=== PATIENT | female | born 1940 | race Caucasian/White ===

== ENCOUNTER 2020-04-12 12:57 | Emergency (ER) | payer MEDICARE, MEDICAID ==
[~2020-04-12 12:57] MED LIST: Sodium Chloride Irrig Solution 250 ML BOT ONE
[2020-04-12 14:15] LABS: Bilirubin Negative (Negative); Blood, Urine Negative (Negative); Clarity Clear (Clear); Glucose, Urine (Dipstick) Negative (Negative); Leukocyte Negative (Negative); Nitrite Negative (Negative); Protein, Urine (Dipstick) 100 mg/dL (Neg-Trace); Urobilinogen 0.2 mg/dL (Less than 2)
[2020-04-12 14:17] LABS: Prothrombin Time 12.9 sec (12.0-14.7)
[2020-04-12 14:24] LABS: Bacteria/HPF Rare-Few HPF (None Seen); RBC/HPF 0-3 HPF (0-3); Squamous Epithelial 0-3 HPF (0-3); WBC/HPF 0-3 HPF (0-3)
[2020-04-12 14:28] LABS: ALT (SGPT) 13 U/L (8-55); AST (SGOT) 11 U/L (5-34); Alkaline Phosphatase 90 U/L (40-110); Anion Gap 18 mmol/L (10-20); BUN (Urea Nitrogen) 45 mg/dL (9.8-20.1); Band 2 % (5-11); Bilirubin, Total 0.3 mg/dL (0.2-1.2); Calc. Creatinine Clearance 0 mL/min (70-130); Calcium 9.1 mg/dL (7.8-10.44); Carbon Dioxide 20 mmol/L (23-31); Chloride 108 mmol/L (98-107); Eosinophils 6 % (0-10); Estimated GFR-MDRD 24; Globulin 4.2 g/dL (2.4-3.5); Glucose 158 mg/dL (83-110); Hemoglobin 12.5 g/dL (12.0-16.0); Lymphocytes 8 % (21-51); MDiff Complete? YES; Macrocytosis SLIGHT = 6-15 cells (100X) (0-5/hpf); Mean Corpuscular HGB CONC 30.9 g/dL (32.0-36.0); Mean Corpuscular Hemoglobin 28.4 pg (27.0-31.0); Mean Corpuscular Volume 91.7 fL (78.0-98.0); Mean Platelet Volume 7.2 fL (7.4-10.4); Monocytes 4 % (0-10); Neutrophil 80 % (42-75); Platelet Count 268 thou/uL (130-400); Platelet Morphology Comment Appears Adequate; Potassium 4.5 mmol/L (3.5-5.1); Protein, Total 8.2 g/dL (6.0-8.3); RBC Distribution Width 12.9 % (11.5-14.5); Red Blood Cell (RBC) Count 4.39 mill/uL (4.20-5.40); Sodium 141 mmol/L (136-145); White Blood Cell (WBC) Count 20.1 thou/uL (4.8-10.8)
--- NOTE | 2020-04-12 14:34 | RAD ---
Exam:3 views right hand HISTORY: Fall. Pain. COMPARISON: None FINDINGS: No fracture, cortical irregularity or periosteal reaction. Mild degenerative changes are no lambert. IMPRESSION: No posttraumatic change.
--- NOTE | 2020-04-12 14:48 | CT ---
Exam: Head CT without contrast HISTORY: Trauma. Patient fell earlier. COMPARISON: none FINDINGS: Hemorrhage: No intraparenchymal hemorrhage or extra-axial hematoma. Brain parenchyma: Cortical nixon-white matter differentiation is preserved. No mass effect or midline shift. Basilar cisterns are patent. Ventricular system: Ventricles and sulci are patent and symmetric. Calvarium: Intact Scalp: Hematoma and subcutaneous emphysema involving the right parietal scalp, compatible with posttr aumatic change. 3 mm hyperdensity along the dermis may represent a small foreign body. Correlate clinically. Sinuses and mastoid air cells: Adequate aeration. IMPRESSION: 1. No intracranial post traumatic sequelae 2. Injury to the right parietal scalp as detailed above.
--- NOTE | 2020-04-12 16:15 | RAD ---
PORTABLE CHEST ONE VIEW: 04/12/20 at 2:18 p.m. HISTORY: Fall, chest pain. FINDINGS/IMPRESSION: The heart size is normal. The lungs are expanded without focal areas of consolidation, pneumothoraces or pleural effusions. There is a calcified granuloma in the right lower lobe. POS: MZA
--- NOTE | 2020-04-12 16:26 | RAD ---
THREE VIEWS LEFT SHOULDER: Comparison: 02-18-09 History: Fall with left shoulder pain. FINDINGS: Three views of the left shoulder shows acute angles along the neck of the humerus. This could represe nt nondisplaced fractures of the cortices of the humerus. This was seen on a prior radiograph. No sig nificant degenerative change is seen in the glenohumeral joint. IMPRESSION: Possible nondisplaced humeral neck fracture. POS: EAA
--- NOTE | 2020-04-12 16:32 | RAD ---
SINGLE VIEW OF THE PELVIS: History: Fall with pelvic pain. FINDINGS: Single view of the pelvis shows no evidence of acute fracture or dislocation. Degenerative changes ar e seen in the lumbar spine and sacroiliac joints. The hips are unremarkable. IMPRESSION: No evidence of acute osseous abnormality. POS: EAA
[2020-04-12] MEDS ORDERED: Lidocaine 1% w/Epinephrine 1:100K 20 ML VIAL ONE (16:48)
[2020-04-12] MEDS ORDERED: Adacel (T-DAP) 0.5 ML SYRINGE ONE (17:21)
--- NOTE | 2020-04-12 19:15 | CT ---
CT OF THE CERVICAL SPINE WITHOUT CONTRAST: 04/12/20 COMPARISON: None. HISTORY: Fall with neck pain. TECHNIQUE: Multiple contiguous axial images were obtained in a CT of the cervical spine without contrast. Sagitt al and coronal reformats were performed. The vertebral bodies and intervertebral discs demonstrate normal height and alignment without fractur e or subluxation. Minimal degenerative changes are seen. No prevertebral soft tissue swelling is seen . The posterior facets are well aligned. Normal alignment of the skull base with the cervical spine is seen. IMPRESSION: Mild degenerative of the cervical spine without acute osseous abnormality. POS: EAA
--- NOTE | 2020-04-12 19:58 | CT ---
CT OF THE LEFT SHOULDER WITHOUT CONTRAST: 04/12/20 COMPARISON: Shoulder radiographs, 04/12/20. HISTORY: Possible humeral neck fracture. TECHNIQUE: Multiple contiguous axial images were obtained in a CT of the left shoulder without contrast. Sagitta l and coronal reformats were performed. FINDINGS: Osteopenia is present. There is a subtle lucency extending through the cortex of the humeral neck. Th is is more prominent posteriorly and is difficult to definitely follow to the more anterior aspect of the humerus. It is difficult to determine whether there is a complete fracture through the humerus o r only of the posterior cortex of the humerus at the region of the humeral neck where it joins the hu meral head. A small osteophyte is seen extending off the inferior aspect of the humeral head. Mild lagunas rrounding soft tissue swelling is seen. IMPRESSION: Left proximal humerus fracture. This is minimally displaced. There is definitely a fracture along the posterior cortex and it is difficult to determine if a complete fracture through the humerus is pre sent. An MRI may be necessary for confirmation if this would pipe changer of the patient. POS: SAUL
== END 2020-04-12 18:03 | disposition home or self-care (01) ==
LOC: MADERS 12:57
DX: S42.202A Unspecified fracture of upper end of left humerus, initial encounter for closed fracture (principal); S01.01XA Laceration without foreign body of scalp, initial encounter; S61.411A Laceration without foreign body of right hand, initial encounter; E11.9 Type 2 diabetes mellitus without complications; E78.5 Hyperlipidemia, unspecified; E78.00 Pure hypercholesterolemia, unspecified; I10 Essential (primary) hypertension; Z79.4 Long term (current) use of insulin; Z79.899 Other long term (current) drug therapy; W19.XXXA Unspecified fall, initial encounter
CPT/HCPCS: 12002; 36415; 70450; 71045; 72125; 72170; 80053; 81003; 81015; 85025; 85610; 90471; 90715; 93005; G0390

== ENCOUNTER 2023-10-21 15:21 | Emergency (ER) | payer MEDICARE, MEDICAID | END 2023-10-21 18:36 | disposition home or self-care (01) | LOC: MADERS 15:21 | DX: S00.03XA Contusion of scalp, initial encounter (principal); W22.8XXA Striking against or struck by other objects, initial encounter; Y93.E9 Activity, other interior property and clothing maintenance | CPT/HCPCS: 70450 ==

== ENCOUNTER 2023-12-04 22:31 | Emergency (ER) | payer MEDICARE, MEDICAID, OTHER ==
[2023-12-04] MEDS ORDERED: Acetaminophen 500 MG TAB ONE (22:59)
[2023-12-04] MEDS ORDERED: Sodium Chloride 0.9% 1,000 ML ONE (22:59)
[2023-12-04] MEDS ORDERED: Lidocaine 1% w/Epinephrine 1:100K 20 ML VIAL ONE (23:22)
[2023-12-04 23:37] LABS: Band 6 % (5-11); Eosinophils 1 % (0-10); Hematocrit 29.6 % (36.0-47.0); Hemoglobin 9.5 g/dL (12.0-16.0); Lymphocytes 4 % (21-51); MDiff Complete? YES; Mean Corpuscular HGB CONC 32.3 g/dL (32.0-36.0); Mean Corpuscular Hemoglobin 33.4 pg (27.0-31.0); Mean Corpuscular Volume 103.3 fl (78.0-98.0); Mean Platelet Volume 7.3 fL (7.4-10.4); Monocytes 6 % (0-10); Neutrophil 83 % (42-75); Platelet Count 194 10x3/uL (130-400); RBC Distribution Width 14.9 % (11.5-14.5); Red Blood Cell (RBC) Count 2.86 mill/uL (4.20-5.40); Toxic Granulation SLIGHT; White Blood Cell (WBC) Count 38.1 10x3/uL (4.8-10.8)
[2023-12-04 23:44] LABS: ALT (SGPT) 10 U/L (8-55); AST (SGOT) 11 U/L (5-34); Albumin 3.7 g/dL (3.4-4.8); Alkaline Phosphatase 106 U/L (40-110); Anion Gap 18 mmol/L (10-20); BUN (Urea Nitrogen) 89 mg/dL (9.8-20.1); Bilirubin, Total 0.3 mg/dL (0.2-1.2); Calc. Creatinine Clearance 0 mL/min (70-130); Calcium 7.7 mg/dL (7.8-10.44); Carbon Dioxide 19 mmol/L (23-31); Chloride 110 mmol/L (98-107); Estimated GFR 15; Glucose 148 mg/dL (83-110); Lipase 20 U/L (8-78); Magnesium 1.3 mg/dL (1.6-2.6); Protein, Total 7.7 g/dL (5.8-8.1); Sodium 141 mmol/L (136-145)
[2023-12-04 23:49] LABS: Critical Call Chemistry ERS.JD @ 2348; Potassium 6.1 mmol/L (3.5-5.1)
[2023-12-04 23:53] LABS: SARS-CoV-2 NAA Rapid Test Not Detected (NotDetected)
[2023-12-04] MEDS ORDERED: Albuterol 2.5 MG (0.5 mL) NEB ONE (23:58)
[2023-12-04] MEDS ORDERED: Dextrose 50% Abboject 50 ML SYRINGE ONE (23:58)
[2023-12-04] MEDS ORDERED: Insulin Regular 300 UNITS/3 ML VIAL ONE (23:58)
[2023-12-05] MEDS ORDERED: Calcium Gluc 4.6 MEQ/10 ML (100 MG/ML) ONE (00:05)
[2023-12-05 00:10] LABS: Troponin I Less than 0.010 ng/mL (< 0.028)
[2023-12-05] MEDS ORDERED: Piperacillin/Tazobactam 3.375 GM VIAL ONE (00:31)
[2023-12-05] MEDS ORDERED: Sodium Chloride 0.9% 100 ML ONE (00:31)
[2023-12-05] MEDS ORDERED: Sodium Chloride 0.9% 250 ML 250 ML ONE (00:31)
[2023-12-05] MEDS ORDERED: Vancomycin 1 GM VIAL ONE (00:31)
[2023-12-05] MEDS ORDERED: Morphine 2 MG/ML VIAL ONE (00:36)
[2023-12-05] MEDS ORDERED: Bacitracin 1 PK ONE (00:51)
[2023-12-05 01:13] LABS: Bilirubin Negative (Negative); Blood, Urine Negative (Negative); Clarity Clear (Clear); Glucose, Urine (Dipstick) Negative (Negative); Ketone, Urine Negative (Negative); Leukocyte Negative (Negative); Nitrite Negative (Negative); Protein, Urine (Dipstick) 100 mg/dL (Neg-Trace); Specific Gravity, Urine 1.025 (1.005-1.030); Urobilinogen 0.2 mg/dL (Less than 2); pH, Urine 6.5 (5.0-9.0)
[2023-12-05 01:16] LABS: CAUTI Indications for Culture Acute Hematuria; RBC/HPF 0-3 HPF (0-3); Squamous Epithelial 0-3 HPF (0-3); Urine Culture Reflex No No; WBC/HPF 0-3 HPF (0-3)
[2023-12-05 02:39] LABS: ALT (SGPT) 16 U/L (8-55); AST (SGOT) 20 U/L (5-34); Albumin 3.3 g/dL (3.4-4.8); Alkaline Phosphatase 87 U/L (40-110); Anion Gap 16 mmol/L (10-20); BUN (Urea Nitrogen) 86 mg/dL (9.8-20.1); Bilirubin, Total 0.4 mg/dL (0.2-1.2); Calc. Creatinine Clearance 0 mL/min (70-130); Calcium 7.4 mg/dL (7.8-10.44); Carbon Dioxide 18 mmol/L (23-31); Chloride 111 mmol/L (98-107); Estimated GFR 16; Globulin 3.3 g/dL (2.4-3.5); Glucose 108 mg/dL (83-110); Potassium 4.9 mmol/L (3.5-5.1); Protein, Total 6.6 g/dL (5.8-8.1); Sodium 140 mmol/L (136-145)
[2023-12-05] MEDS ORDERED: Magnesium Oxide 400 MG TAB ONE (02:44)
[2023-12-05 06:44] LABS: #Basophils 0.1 thou/uL (0.0-0.2); #Monocytes 1.3 thou/uL (0.11-0.59); #Neutrophils 49.2 thou/uL (1.40-6.50); %Basophils 0.1 % (0.0-1.0); %Monocytes 2.5 % (0.0-10.0); %Neutrophils 95.4 % (42.0-75.0); Hematocrit 27.4 % (36.0-47.0); Hemoglobin 8.5 g/dL (12.0-16.0); Mean Corpuscular Hemoglobin 32.1 pg (27.0-31.0); Mean Corpuscular Volume 103.7 fl (78.0-98.0); Mean Platelet Volume 7.2 fL (7.4-10.4); Platelet Count 177 10x3/uL (130-400); Red Blood Cell (RBC) Count 2.64 mill/uL (4.20-5.40); White Blood Cell (WBC) Count 51.6 10x3/uL (4.8-10.8)
[2023-12-05 07:00] LABS: ALT (SGPT) 22 U/L (8-55); AST (SGOT) 27 U/L (5-34); Albumin 3.2 g/dL (3.4-4.8); Alkaline Phosphatase 76 U/L (40-110); Anion Gap 17 mmol/L (10-20); BUN (Urea Nitrogen) 85 mg/dL (9.8-20.1); Bilirubin, Total 0.5 mg/dL (0.2-1.2); Calc. Creatinine Clearance 0 mL/min (70-130); Calcium 7.4 mg/dL (7.8-10.44); Carbon Dioxide 18 mmol/L (23-31); Chloride 111 mmol/L (98-107); Estimated GFR 16; Globulin 3.4 g/dL (2.4-3.5); Glucose 103 mg/dL (83-110); Magnesium 1.4 mg/dL (1.6-2.6); Potassium 5.7 mmol/L (3.5-5.1); Protein, Total 6.6 g/dL (5.8-8.1); Sodium 140 mmol/L (136-145)
[2023-12-05] MEDS ORDERED: Losartan 25 MG TAB ONE (08:38)
[2023-12-05] MEDS ORDERED: hydrALAZINE 25 MG TAB PO SCH (10:00)
[2023-12-05] MEDS ORDERED: Lantus 1000 UNITS/10 ML VIAL SC SCH (10:00)
[2023-12-05] MEDS ORDERED: Allopurinol 100 MG TAB PO SCH (10:00)
[2023-12-05] MEDS ORDERED: Rosuvastatin 10 MG TAB PO SCH (10:00)
[2023-12-05] MEDS ORDERED: Acetaminophen 500 MG TAB ONE (10:23)
[2023-12-05] MEDS ORDERED: traMADol HCl 50 MG TAB ONE (10:23)
[2023-12-05 12:01] LABS: Anion Gap 17 mmol/L (10-20); BUN (Urea Nitrogen) 83 mg/dL (9.8-20.1); Calc. Creatinine Clearance 0 mL/min (70-130); Calcium 7.4 mg/dL (7.8-10.44); Carbon Dioxide 18 mmol/L (23-31); Chloride 110 mmol/L (98-107); Estimated GFR 16; Glucose 143 mg/dL (83-110); Phosphorus 3.6 mg/dL (2.3-4.7); Potassium 5.8 mmol/L (3.5-5.1); Sodium 139 mmol/L (136-145)
[2023-12-05] MEDS ORDERED: Albuterol 2.5 MG (0.5 mL) NEB ONE (13:11)
[2023-12-05] MEDS ORDERED: Albuterol 2.5 MG (3 mL) NEB ONE (13:11)
[2023-12-05] MEDS ORDERED: Dextrose 50% Abboject 50 ML SYRINGE ONE (13:11)
[2023-12-05] MEDS ORDERED: Sodium Polystyrene Sulfonate 15 GM (60 mL) BOT ONE (13:12)
[2023-12-05] MEDS ORDERED: Insulin Regular 300 UNITS/3 ML VIAL ONE (13:12)
[2023-12-05] MEDS ORDERED: Sodium Chloride 0.9% 1,000 ML ONE (13:12)
[2023-12-05] MEDS ORDERED: Ondansetron PF 4 MG/2 ML Vial IVP PRN (15:15)
[2023-12-05] MEDS ORDERED: Sodium Chloride 0.9% 1,000 ML IV SCH (15:15)
[2023-12-05] MEDS ORDERED: Ondansetron ODT 4 MG TAB SL PRN (15:15)
[2023-12-05] MEDS ORDERED: Acetaminophen 325 MG TAB PO PRN (15:15)
== END 2023-12-05 13:40 | disposition short-term general hospital (02) ==
LOC: MADERS 22:31
DX: S81.812A Laceration without foreign body, left lower leg, initial encounter (principal); A41.9 Sepsis, unspecified organism; E87.5 Hyperkalemia; E11.22 Type 2 diabetes mellitus with diabetic chronic kidney disease; N18.4 Chronic kidney disease, stage 4 (severe); I12.9 Hypertensive chronic kidney disease with stage 1 through stage 4 chronic kidney disease, or unspecified chronic kidney disease; E78.00 Pure hypercholesterolemia, unspecified; Z79.82 Long term (current) use of aspirin; Z79.4 Long term (current) use of insulin; Z79.899 Other long term (current) drug therapy; W18.30XA Fall on same level, unspecified, initial encounter
CPT/HCPCS: 71101; 71250; 73590; 74177; 80048; 80053 ×2; 81001; 83605; 83690; 83735; 83880; 84100; 84484; 85025; 87040; 87077; 87086; 87149 ×2; 87186; 87804 ×2; 93005 ×2; J0612; U0002; 12002; 36415; 51701; 96361; 96365; 96367; 96375; 96376; J1815; J2272; J2543; J3370; J3490; J7050; J7611; J7999